=== PATIENT | female | born 1990 | race Caucasian/White ===

== ENCOUNTER 2017-09-21 09:05 | Emergency (ER) | payer SELFPAY ==
[~2017-09-21] VITALS: Ht 162.6 cm; Wt 47.6 kg
[2017-09-21 09:16] VITALS: BP 107/56
== END 2017-09-21 09:21 | disposition left against medical advice (07) ==
LOC: ER 09:05
DX: R51 Headache (principal); Z53.21 Procedure and treatment not carried out due to patient leaving prior to being seen by health care provider

== ENCOUNTER 2017-09-21 17:37 | Emergency (ER) | payer SELFPAY ==
[~2017-09-21] VITALS: Ht 160 cm; Wt 49.9 kg
[2017-09-21 18:41] LABS: Basophils # (auto) 0 uL; Eosinophils # (auto) 0.1 uL; White Blood Cell 6.3 10^3/uL (4.4-10.8)
[2017-09-21 18:43] LABS: Basophils % (auto) 0.6 % (0.0-2.0); Eosinophils % (auto) 1.1 % (0.0-7.0); Hematocrit 33.8 % (36.0-46.0); Hemoglobin 10.8 g/dL (12.2-16.2); Lymphocytes # (auto) 2.2 uL; Lymphocytes % (auto) 34.3 % (10.0-50.0); Mean Corpuscular Hemoglobin 22.3 pg (28.0-32.0); Mean Corpuscular Volume 69.7 fL (80.0-100.0); Monocytes # (auto) 0.7 uL; Monocytes % (auto) 10.6 % (0.0-12.0); Neutrophils # (auto) 3.4 uL; Neutrophils % (auto) 53.4 % (37.0-80.0); Nucleated Red Blood Cells % 0.5 %; Platelet Count (auto) 346 10^3/uL (140-450); Red Blood Cells 4.86 10^6/uL (4.0-5.20); Red Cell Distribution Width 15.1 % (11.8-14.3)
[2017-09-21 18:49] LABS: Alanine Aminotransferase 17 U/L (13-56); Albumin 3.7 g/dL (3.4-5.0); Anion Gap 12 (5-15); Aspartate Aminotransferase 16 U/L (15-37); BUN/Creatinine Ratio 15.2; Blood Alcohol < 3.0 mg/dL (0-5); Blood Urea Nitrogen 12 mg/dL (7-18); Calcium 8.1 mg/dL (8.5-10.1); Carbon Dioxide 21 mmol/L (21-32); Chloride 111 mmol/L (98-107); GFR African American 115 mL/min; GFR Non-African American 95 mL/min; Glucose 70 mg/dL (74-106); Potassium 3.3 mmol/L (3.5-5.1); Sodium 144 mmol/L (136-145)
[2017-09-21 19:04] LABS: Alkaline Phosphatase 66 U/L (45-117); Bilirubin, Total 0.6 mg/dL (0.2-1.0); Total Protein 7.5 g/dL (6.4-8.2)
[2017-09-22 06:51] LABS: Alcohol, Urine < 3.0 mg/dL (0-5); Amphetamine Screen, Urine POSITIVE (NEGATIVE); Barbiturate Scree,Urine NEGATIVE (NEGATIVE); Benzodiazephine Screen, Urine NEGATIVE (NEGATIVE); Cannabinoid Screen, Urine NEGATIVE (NEGATIVE); Cocaine Screen, Urine NEGATIVE (NEGATIVE); Opiate Scree,Urine NEGATIVE (NEGATIVE); Phencyclidine Screen, Urine NEGATIVE (NEGATIVE)
[2017-09-22 08:05] VITALS: BP 144/83
== END 2017-09-22 09:05 | disposition home or self-care (01) ==
LOC: EDBD 17:37 → ER 17:39
DX: F15.10 Other stimulant abuse, uncomplicated (principal)
CPT/HCPCS: 36415; 70450; 80053; 80307; 80320; 84702; 85025; 93005

== ENCOUNTER → 2017-09-22 | Emergency (ER) | payer SELFPAY ==
[~2017-09-22] VITALS: Ht 162.6 cm; Wt 49.9 kg
[~2017-09-22] MED LIST: ACETAMINOPHEN 325 MG TAB PO ONE
[2017-09-22 12:39] VITALS: BP 105/63
== END | disposition left against medical advice (07) ==
LOC: EDUNIT# 12:30 → EDBD 12:30 → ER 12:33
DX: F91.9 Conduct disorder, unspecified (principal); F17.210 Nicotine dependence, cigarettes, uncomplicated; Z53.29 Procedure and treatment not carried out because of patient's decision for other reasons